=== PATIENT | female | born 1990 | race Caucasian/White ===

== ENCOUNTER → 2020-05-21 16:31 | Outpatient (CLI) | payer SELFPAY | PROVIDERS: PCP Family Medicine; Visit Provider Physician Assistant | DX: T14.8XXA Other injury of unspecified body region, initial encounter (principal) | CPT/HCPCS: 87070; 87075; 87205 ==

== ENCOUNTER → 2020-05-23 11:14 | Outpatient (CLI) | payer SELFPAY ==
[2020-05-23 11:53] LABS: Add Manual Diff / Slide Review NO; Basophils Absolute Auto 100 /uL (0-100); Basophils Percent Auto 0.5 % (0-2); Eosinophils Absolute Auto 1100 /uL (0-450); Eosinophils Percent Auto 9.6 % (2-4); Hematocrit 41.9 % (36-46); Hemoglobin 13.7 g/dL (12.0-16.0); Lymphocytes Absolute Auto 2500 /uL (1100-4500); Lymphocytes Percent Auto 21.4 % (25-40); Mean Corpuscular HGB Conc 32.7 % (30-36); Mean Corpuscular Hemoglobin 27.1 PG (26-34); Monocytes Absolute Auto 600 /uL (0-900); Monocytes Percent Auto 4.8 % (3-14); Neutrophils Absolute Auto 7500 /uL (1500-7000); Neutrophils Percent Auto 63.7 % (50-75); Platelet Count 369 X10^3/uL (150-400); Red Blood Cell Count 5.04 X10^6/uL (4.0-5.2); Red Cell Distribution Width 13.7 % (11.6-14.8); White Blood Cell Count 11.9 X10^3/uL (4.5-11.0)
[2020-05-23 12:21] LABS: Alanine Aminotransferase 20 IU/L (<35); Albumin 3.8 g/dL (3.5-5.0); Alkaline Phosphatase 112 U/L (38-126); Aspartate Aminotransferase 26 IU/L (14-36); BUN Creatinine Ratio 8.8 (6-22); Bilirubin Total 0.7 mg/dL (0.2-1.3); Blood Urea Nitrogen 7 mg/dL (7-17); Calcium 8.7 mg/dL (8.4-10.2); Carbon Dioxide 21 mmol/L (22-32); Chloride 105 mmol/L (98-107); Estimated Glomerular Filt Rate > 60.0 mL/min (>60); Globulin 3.7 g/dL (1.7-4.1); Glucose 134 mg/dL (70-100); HEMOLYSIS 35 (0-50); Potassium 3.9 mmol/L (3.4-5.1); Sodium 136 mmol/L (137-145); Total Protein 7.5 g/dL (6.3-8.2)
== END ==
PROVIDERS: PCP Family Medicine; Referring Provider Physician Assistant; Visit Provider Physician Assistant
DX: R21 Rash and other nonspecific skin eruption (principal)
CPT/HCPCS: 36415; 80053; 85025

== ENCOUNTER 2020-05-28 13:51 | Emergency (ER) | payer SELFPAY ==
[2020-05-28 14:29] VITALS: BP 107/74; PULSE 142; RESP 18; TEMP 36.9; O2SAT 95; BMI 52.9
--- NOTE | 2020-05-28 14:34 | PC.NURSE ---
Patient has multiple widespread lesion, pustules all over her body, in multiple stages of healing lasting for several days. She is not complaning of shortness of breath, chest pain, dizziness or lightheadedness. She is tachycardic at 140 but reports feeling anxious about being in the ER.
[2020-05-28 14:36] VITALS: O2SAT 95
[2020-05-28 14:42] LABS: Add Manual Diff / Slide Review NO; Basophils Absolute Auto 100 /uL (0-100); Basophils Percent Auto 0.4 % (0-2); Eosinophils Absolute Auto 1500 /uL (0-450); Eosinophils Percent Auto 12.6 % (2-4); Hematocrit 41.7 % (36-46); Hemoglobin 13.6 g/dL (12.0-16.0); Lymphocytes Absolute Auto 2400 /uL (1100-4500); Lymphocytes Percent Auto 20.2 % (25-40); Mean Corpuscular HGB Conc 32.5 % (30-36); Mean Corpuscular Volume 83.2 fL (80-100); Monocytes Absolute Auto 500 /uL (0-900); Monocytes Percent Auto 4.5 % (3-14); Neutrophils Absolute Auto 7500 /uL (1500-7000); Neutrophils Percent Auto 62.3 % (50-75); Platelet Count 358 X10^3/uL (150-400); Red Blood Cell Count 5.02 X10^6/uL (4.0-5.2); Red Cell Distribution Width 13.9 % (11.6-14.8); White Blood Cell Count 12.1 X10^3/uL (4.5-11.0)
--- NOTE | 2020-05-28 14:43 | ED_ITS ---
HPI - Skin/Abscess/Foreign Bdy <April Orellana MD - Last Filed: 06/01/20 18:04> General Chief complaint: Skin/Abscess/Foreign Body Stated complaint: SORES AND PUSTULES ALL OVER, FACIAL SWELLING Time Seen by Provider: 05/28/20 13:55 Source: patient Mode of arrival: Ambulatory Limitations: no limitations History of Present Illness HPI narrative: 29-year-old woman presents with significant bulla and vesicular lesions present for well over a month starting initially in her right axilla and progressing now to axilla face abdomen genitals mucous membranes years and getting significantly worse. She was seen at urgent care approximately a week ago and started on Augmentin for superinfection of the lesions, she declined ER evaluation or further workup at that time. She denies fevers, chills, night sweats. She had not been taking any medications prior to the initial lesions starting in the right axillary area. After taking Augmentin for the last 4 days she feels that the honey-colored discharge associated with some of the lease and is slightly lessened. She does note vesicles within the ear canal better draining, buccal mucosal as well as tongue involvement. Minor lesions extending over the external genitalia but does not seem to be involving vaginal or rectal mucosa. Of autoimmune disease. No regular medications, no IV drug use or high- risk behaviors. No recent viral illnesses of any sort. She denies headache, there is no vision changes, constipation, reactive arthropathy. She has had no cough, chest pain, abdominal pain, vomiting, diarrhea, dysuria. Despite the rather impressive dermatologic exam she appears nontoxic and is able to give a complete and coherent history. Reference pictures below At this time, possibility of bullous systemic lupus or paraneoplastic pemphigus are higher on my differential. Possibility of Arevalo-Heladio syndrome or toxic epidermal necrolysis is less likely as she appears so clinically stable otherwise. Of note there were no preceding medications in the 1st antibiotics were only 7 days ago. Do not suspect scalded skin syndrome, disseminated zoster or herpes. Blood work including blood cultures, sed rate, viral culture of 1 of the unroofed bulla, throat culture, are all obtained. The lesions are progressively getting worse and at this point are significant enough that hospitalization is likely going to be appropriate simply to care for the wounds themself. Diagnostic is significant and likely will be most appropriately handled at a larger facility with multiple specialties immediately available. To that end, pictures have been sent to [facility] to begin consultation with anticipation of transfer. Related Data Previous Rx's Medication Instructions Recorded drospirenone-e.estradiol-lm.FA 1 tab PO QDAY #3 packet 12/06/17 [Beyaz] hydroxyzine HCl 12.5 - 25 mg PO TID PRN #240 ml 05/28/20 triamcinolone acetonide 1 applic TOPICAL TID PRN #120 g 05/28/20 Allergies Allergy/AdvReac Type Severity Reaction Status Date / Time No Known Drug Allergies Allergy Verified 05/28/20 14:52 <ROBB Lopez - Last Filed: 05/28/20 20:01> Review of Systems Narrative: General: Denies (+) occasional subjective fever and chills, fatigue, malaise, sweats. HEENT: Denies sinus pain, (+) drainage from EACs and sloughing, (+) sores in the tongue and dry oral mucous membrane, sore throat, difficulty swallowing, dizziness. Respiratory: Denies dyspnea, cough, wheezing, hemoptysis, sputum. Cardiovascular: Denies chest pain, palpitations, orthopnea, edema. Gastrointestinal: Denies nausea, vomiting, abdominal pain, diarrhea, constipation, melena. : Denies dysuria, frequency, incontinence, hematuria, urinary retention. Musculoskeletal: Denies weakness, joint pain or bony pain. Skin: See HPI Neurologic: Denies weakness, headache, numbness, change in speech, confusion, seizures, incoordination. Psychiatric: No concerning psychosocial issues. 12-point review of systems is negative except for those stated above. Patient History <April Orellana MD - Last Filed: 06/01/20 18:04> Medical History No active medical problems Social History Smoking Status: Never smoker substance use type: marijuana (once) Smoking Status: Never smoker alcohol intake frequency: holidays/special occasions only Substance Use Type: marijuana Exam <April Orellana MD - Last Filed: 06/01/20 18:04> Initial Vital Signs Initial Vital Signs: Vital Signs Temperature 98.5 F 05/28/20 14:29 Pulse Rate 142 H 05/28/20 14:29 Respiratory Rate 18 05/28/20 14:29 Blood Pressure 107/74 05/28/20 14:29 Pulse Oximetry 95 05/28/20 14:29 <Chapin ROBB Sawyer - Last Filed: 05/28/20 20:01> Narrative Exam Narrative: GEN: Alert, oriented x 3, well nourished, and in moderate di stress from Dermatologic discomfort. Head: Normal cephalic, atraumatic. No scalp or temporal tenderness, palpable mass or rash. EYES: Pupils are equal, round, and reactive to light and accommodation. Extraocular muscles are intact bilaterally. There is no subconjunctival hemorrhage, exudate and sclera non-icteric. ENT: Bilateral auditory canal noted light yellowish drainage. Hearing grossly intact. Nose without bleeding, purulent discharge or deviation. Mild facial swelling in periorbital and nasal bridge nontender to palpate. Mucous membrane moist, ulcerate mucosal lesion. Throat without erythema, tonsillar hypertrophy or exudate. Uvula in midline, airway patent. Neck: Trachea in midline. No JVD, non-tender without lymphadenopathy. No masses or thyroid megaly. Supple, non-tender and no meningeal signs. CARDIAC: Normal regular rate and rhythm without murmurs, gallops, or rubs. No chest wall tenderness. No peripheral edema, cyanosis or pallor. Capillary refill is less than 2 seconds. RESPIRATORY: Lungs are clear to auscultate bilaterally. No cough, wheezes, ral es, or rhonchi. No stridor, respiratory distress, increase work of breathing, or accessary muscle used. ABD: Abdomen soft, nontender and non-distended. No guarding or rebound tenderness to palpate. Bowel sounds are normal in all 4 quadrants. There is no palpable masses or organomegaly. EXT: Full painless ROM of all extremities with no loss of sensation, strength, effusion or edema. SKIN: Warm, dry, normal color for patient. Multiple ulcerated lesions, bulla, pustules in face, upper body, upper and lower extremities. No rashes in palms or soles. Painful to palpate. BACK: Nontender without deformity or crepitance. No flank tenderness. NEUROLOGICAL: Alert and oriented to place, time and person. Sensation and motor function intact bilaterally. No facial droops, dysphasia. PSYCHIATRIC: Good judgement and reason, without hallucinations, abnormal affect or abnormal behaviors during the examination. Patient is not suicidal. Initial Vital Signs Initial Vital Signs: Vital Signs Temperature 98.5 F 05/28/20 14:29 Pulse Rate 142 H 05/28/20 14:29 Respiratory Rate 18 05/28/20 14:29 Blood Pressure 107/74 05/28/20 14:29 Pulse Oximetry 95 05/28/20 14:29 <ROBB Lopez - Last Filed: 05/28/20 20:01> GCS [place] coma scale eye opening: Spontaneous [place] coma scale verbal response: Orientated [place] coma scale motor response: Obey commands [place] coma scale total score: 15 Course <April Orellana MD - Last Filed: 06/01/20 18:04> Orders Ordered: Discontinued Medications Diphenhydramine HCl (Diphenhydramine 50 Mg/Ml Vial) 25 mg IV NOW ONE Stop: 05/28/20 15:27 Last Admin: 05/28/20 15:36 Dose: 25 mg Documented by: VIVEK Sodium Chloride (Normal Saline 0.9%) 1,000 mls @ 1,000 mls/hr IV BOLUS ONE Stop: 05/28/20 15:10 Last Infusion: 05/28/20 16:48 Dose: 0 mls/hr Documented by: Admin: 05/28/20 14:57 Dose: 1,000 mls/hr Documented by: JHONATAN Sodium Chloride (Normal Saline 0.9%) 1,000 mls @ 150 mls/hr IV CONT MADHU Last Infusion: 05/28/20 19:20 Dose: 0 mls/hr Documented by: Infusion: 05/28/20 18:08 Dose: 1,000 mls/hr Documented by: Admin: 05/28/20 17:30 Dose: 150 mls/hr Documented by: JHONATAN Silver Sulfadiazine (Silver Sulfadiazine 1% Cream 25 Gm) 1 applic TOP NOW ONE Stop: 05/28/20 14:33 Last Admin: 05/28/20 15:34 Dose: Not Given Documented by: JHONATAN Silver Sulfadiazine (Silver Sulfadiazine 1% Cream 50 Gm) 1 applic TOP NOW ONE Stop: 05/28/20 15:16 Last Admin: 05/28/20 15:35 Dose: 1 applic Documented by: JHONATAN Consultations Consultation #1: Consultation #2: Consultation #3: Vital Signs Vital signs: Vital Signs - 8 hr 05/28/20 14:29 05/28/20 14:36 05/28/20 17:14 Temperature 98.5 F 98.7 F Pulse Rate 142 H 89 Respiratory Rate 18 16 Blood Pressure 107/74 90/54 L Pulse Oximetry 95 95 95 05/28/20 19:04 Temperature 98.8 F Pulse Rate 96 H Respiratory Rate 14 Blood Pressure 106/63 Pulse Oximetry 96 <ROBB Lopez - Last Filed: 05/28/20 20:01> Orders Ordered: Discontinued Medications Diphenhydramine HCl (Diphenhydramine 50 Mg/Ml Vial) 25 mg IV NOW ONE Stop: 05/28/20 15:27 Last Admin: 05/28/20 15:36 Dose: 25 mg Documented by: VIVEK Sodium Chloride (Normal Saline 0.9%) 1,000 mls @ 1,000 mls/hr IV BOLUS ONE Stop: 05/28/20 15:10 Last Infusion: 05/28/20 16:48 Dose: 0 mls/hr Documented by: Admin: 05/28/20 14:57 Dose: 1,000 mls/hr Documented by: JHONATAN Sodium Chloride (Normal Saline 0.9%) 1,000 mls @ 150 mls/hr IV CONT MADHU Last Infusion: 05/28/20 19:20 Dose: 0 mls/hr Documented by: Infusion: 05/28/20 18:08 Dose: 1,000 mls/hr Documented by: Admin: 05/28/20 17:30 Dose: 150 mls/hr Documented by: JHONATAN Silver Sulfadiazine (Silver Sulfadiazine 1% Cream 25 Gm) 1 applic TOP NOW ONE Stop: 05/28/20 14:33 Last Admin: 05/28/20 15:34 Dose: Not Given Documented by: JHONATAN Silver Sulfadiazine (Silver Sulfadiazine 1% Cream 50 Gm) 1 applic TOP NOW ONE Stop: 05/28/20 15:16 Last Admin: 05/28/20 15:35 Dose: 1 applic Documented by: JHONATAN Reevaluation(s) Reevaluation #1: Patient reports itching improved after the Benadryl. Mild discomfort when she has to reposition self. Update given and informed that wait ing for Measurement Superintendent phone call from [facility]. Time: 17:28 Consultations Consultation #1: [facility] contacted for infectious disease, dermatology consultation and possible transfer patient for further evaluation and treatment. Photos transmitted. Time: 13:25 Consultation #2: [facility] contacted to f/u on consultation and was informed about long wait at this time and will return a phone call by an RN for further information request. Time: 14:30 Consultation #3: [facility] transfer vp & general counsel called back and provided patient's information and waiting for tool design engineer phone call. Declines pain med. Time: 17:05 Additional Consultation(s): Spoke with Radha Ramsey at [facility], dermatolgoist. She reviewed the photos of the patient that have been transmitted. recommends no urgent transfer of patient to [facility] since patient does not have major constitutional symptoms and this has been going on for a month or 2 and she does have an appointment set up in 2 days locally. 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 She recommended Atarax as needed for itching, topical steroids as related and apply skin lesions with Vaseline gauze. She recommended continue to use Silvadene if this has already started in addition. Dr. Chandler also recommended stopping Augment. Vital Signs Vital signs: Vital Signs - 8 hr 05/28/20 14:29 05/28/20 14:36 05/28/20 17:14 Temperature 98.5 F 98.7 F Pulse Rate 142 H 89 Respiratory Rate 18 16 Blood Pressure 107/74 90/54 L Pulse Oximetry 95 95 95 05/28/20 19:04 Temperature 98.8 F Pulse Rate 96 H Respiratory Rate 14 Blood Pressure 106/63 Pulse Oximetry 96 MDM - Skin/Abscess/Foreign Bdy <April Orellana MD - Last Filed: 06/01/20 18:04> Lab Data Result diagrams: 05/28/20 14:20 05/28/20 14:20 Labs: Lab Results 05/28/20 05/28/20 05/28/20 Range/Units 14:20 14:20 14:20 WBC 12.1 H (4.5-11.0) X10^3/uL RBC 5.02 (4.0-5.2) X10^6/uL Hgb 13.6 (12.0-16.0) g/dL Hct 41.7 (36-46) % MCV 83.2 (80-100) fL MCH 27.0 (26-34) PG MCHC 32.5 (30-36) % RDW 13.9 (11.6-14.8) % Plt Count 358 (150-400) X10^3/uL Neut % (Auto) 62.3 (50-75) % Lymph % (Auto) 20.2 L (25-40) % [place] % (Auto) 4.5 (3-14) % Eos % (Auto) 12.6 H (2-4) % Baso % (Auto) 0.4 (0-2) % Neut # (Auto) 7500 H (6464-0794) /uL Lymph # (Auto) 2400 (7937-0112) /uL [place] # (Auto) 500 (0-900) /uL Eos # (Auto) 1500 H (0-450) /uL Baso # (Auto) 100 (0-100) /uL ESR (0-20) MM/HR Sodium 136 L (137-145) mmol/L Potassium 3.8 (3.4-5.1) mmol/L Chloride 106 (98-107) mmol/L Carbon Dioxide 22 (22-32) mmol/L BUN 7 (7-17) mg/dL Creatinine 0.81 (0.52-1.04) mg/dL Estimated GFR > 60.0 (>60) mL/min BUN/Creatinine Ratio 8.6 (6-22) Glucose 131 H (70-100) mg/dL Lactate (0.7-2.1) mmol/L Calcium 8.7 (8.4-10.2) mg/dL Total Bilirubin 0.7 (0.2-1.3) mg/dL AST 35 (14-36) IU/L ALT 28 (<35) IU/L Alkaline Phosphatase 106 (38-126) U/L C-Reactive Protein (<1.0) mg/dL Total Protein 6.9 (6.3-8.2) g/dL Albumin 3.5 (3.5-5.0) g/dL Globulin 3.4 (1.7-4.1) g/dL Albumin/Globulin Ratio 1.0 (1.0-2.8) Procalcitonin < 0.05 (<0.5) ng/mL Urine Color Urine Appearance Urine pH (4.5-8.0) Ur Specific [place] (1.000-1.035) Urine Protein (Negative) Urine Glucose (UA) (Negative) g/dL Urine Ketones (NEGATIVE) Urine Occult Blood (Negative) Urine Nitrate (Negative) Urine Bilirubin (NEGATIVE) Urine Urobilinogen (0.2) E.U./dL Ur Leukocyte Esterase (NEGATIVE) Urine RBC (0-5/HPF) Urine WBC (0-5/HPF) Ur Squamous Epith Cells (0-5/HPF) Ur Transition Epith Cell (0-5/HPF) Urine Bacteria (None) Urine Mucus (Negative) Ur Culture Indicated? Urine Test (Negative) COVID-19 PCR (Negative) Group A Strep (PCR) 05/28/20 05/28/20 05/28/20 Range/Units 14:20 14:20 14:20 WBC (4.5-11.0) X10^3/uL RBC (4.0-5.2) X10^6/uL Hgb (12.0-16.0) g/dL Hct (36-46) % MCV (80-100) fL MCH (26-34) PG MCHC (30-36) % RDW (11.6-14.8) % Plt Count (150-400) X10^3/uL Neut % (Auto) (50-75) % Lymph % (Auto) (25-40) % [place] % (Auto) (3-14) % Eos % (Auto) (2-4) % Baso % (Auto) (0-2) % Neut # (Auto) (5348-3228) /uL Lymph # (Auto) (3944-4347) /uL [place] # (Auto) (0-900) /uL Eos # (Auto) (0-450) /uL Baso # (Auto) (0-100) /uL ESR 6 (0-20) MM/HR Sodium (137-145) mmol/L Potassium (3.4-5.1) mmol/L Chloride (98-107) mmol/L Carbon Dioxide (22-32) mmol/L BUN (7-17) mg/dL Creatinine (0.52-1.04) mg/dL Estimated GFR (>60) mL/min BUN/Creatinine Ratio (6-22) Glucose (70-100) mg/dL Lactate 1.3 (0.7-2.1) mmol/L Calcium (8.4-10.2) mg/dL Total Bilirubin (0.2-1.3) mg/dL AST (14-36) IU/L ALT (<35) IU/L Alkaline Phosphatase (38-126) U/L C-Reactive Protein 1.3 H (<1.0) mg/dL Total Protein (6.3-8.2) g/dL Albumin (3.5-5.0) g/dL Globulin (1.7-4.1) g/dL Albumin/Globulin Ratio (1.0-2.8) Procalcitonin (<0.5) ng/mL Urine Color Urine Appearance Urine pH (4.5-8.0) Ur Specific [place] (1.000-1.035) Urine Protein (Negative) Urine Glucose (UA) (Negative) g/dL Urine Ketones (NEGATIVE) Urine Occult Blood (Negative) Urine Nitrate (Negative) Urine Bilirubin (NEGATIVE) Urine Urobilinogen (0.2) E.U./dL Ur Leukocyte Esterase (NEGATIVE) Urine RBC (0-5/HPF) Urine WBC (0-5/HPF) Ur Squamous Epith Cells (0-5/HPF) Ur Transition Epith Cell (0-5/HPF) Urine Bacteria (None) Urine Mucus (Negative) Ur Culture Indicated? Urine Test (Negative) COVID-19 PCR (Negative) Group A Strep (PCR) 05/28/20 05/28/20 05/28/20 Range/Units 14:20 14:20 16:18 WBC (4.5-11.0) X10^3/uL RBC (4.0-5.2) X10^6/uL Hgb (12.0-16.0) g/dL Hct (36-46) % MCV (80-100) fL MCH (26-34) PG MCHC (30-36) % RDW (11.6-14.8) % Plt Count (150-400) X10^3/uL Neut % (Auto) (50-75) % Lymph % (Auto) (25-40) % [place] % (Auto) (3-14) % Eos % (Auto) (2-4) % Baso % (Auto) (0-2) % Neut # (Auto) (1707-9236) /uL Lymph # (Auto) (9036-8913) /uL [place] # (Auto) (0-900) /uL Eos # (Auto) (0-450) /uL Baso # (Auto) (0-100) /uL ESR (0-20) MM/HR Sodium (137-145) mmol/L Potassium (3.4-5.1) mmol/L Chloride (98-107) mmol/L Carbon Dioxide (22-32) mmol/L BUN (7-17) mg/dL Creatinine (0.52-1.04) mg/dL Estimated GFR (>60) mL/min BUN/Creatinine Ratio (6-22) Glucose (70-100) mg/dL Lactate (0.7-2.1) mmol/L Calcium (8.4-10.2) mg/dL Total Bilirubin (0.2-1.3) mg/dL AST (14-36) IU/L ALT (<35) IU/L Alkaline Phosphatase (38-126) U/L C-Reactive Protein (<1.0) mg/dL Total Protein (6.3-8.2) g/dL Albumin (3.5-5.0) g/dL Globulin (1.7-4.1) g/dL Albumin/Globulin Ratio (1.0-2.8) Procalcitonin (<0.5) ng/mL Urine Color Urine Appearance Urine pH (4.5-8.0) Ur Specific [place] (1.000-1.035) Urine Protein (Negative) Urine Glucose (UA) (Negative) g/dL Urine Ketones (NEGATIVE) Urine Occult Blood (Negative) Urine Nitrate (Negative) Urine Bilirubin (NEGATIVE) Urine Urobilinogen (0.2) E.U./dL Ur Leukocyte Esterase (NEGATIVE) Urine RBC (0-5/HPF) Urine WBC (0-5/HPF) Ur Squamous Epith Cells (0-5/HPF) Ur Transition Epith Cell (0-5/HPF) Urine Bacteria (None) Urine Mucus (Negative) Ur Culture Indicated? Urine Test Negative (Negative) COVID-19 PCR Negative (Negative) Group A Strep (PCR) Negative 05/28/20 Range/Units 16:18 WBC (4.5-11.0) X10^3/uL RBC (4.0-5.2) X10^6/uL Hgb (12.0-16.0) g/dL Hct (36-46) % MCV (80-100) fL MCH (26-34) PG MCHC (30-36) % RDW (11.6-14.8) % Plt Count (150-400) X10^3/uL Neut % (Auto) (50-75) % Lymph % (Auto) (25-40) % [place] % (Auto) (3-14) % Eos % (Auto) (2-4) % Baso % (Auto) (0-2) % Neut # (Auto) (4052-7334) /uL Lymph # (Auto) (4091-1422) /uL [place] # (Auto) (0-900) /uL Eos # (Auto) (0-450) /uL Baso # (Auto) (0-100) /uL ESR (0-20) MM/HR Sodium (137-145) mmol/L Potassium (3.4-5.1) mmol/L Chloride (98-107) mmol/L Carbon Dioxide (22-32) mmol/L BUN (7-17) mg/dL Creatinine (0.52-1.04) mg/dL Estimated GFR (>60) mL/min BUN/Creatinine Ratio (6-22) Glucose (70-100) mg/dL Lactate (0.7-2.1) mmol/L Calcium (8.4-10.2) mg/dL Total Bilirubin (0.2-1.3) mg/dL AST (14-36) IU/L ALT (<35) IU/L Alkaline Phosphatase (38-126) U/L C-Reactive Protein (<1.0) mg/dL Total Protein (6.3-8.2) g/dL Albumin (3.5-5.0) g/dL Globulin (1.7-4.1) g/dL Albumin/Globulin Ratio (1.0-2.8) Procalcitonin (<0.5) ng/mL Urine Color Yellow Urine Appearance Sl cloudy Urine pH 6.0 (4.5-8.0) Ur Specific [place] 1.010 (1.000-1.035) Urine Protein Negative (Negative) Urine Glucose (UA) Negative (Negative) g/dL Urine Ketones Trace H (NEGATIVE) Urine Occult Blood Trace-lysed (Negative) Urine Nitrate Negative (Negative) Urine Bilirubin Negative (NEGATIVE) Urine Urobilinogen 0.2 (0.2) E.U./dL Ur Leukocyte Esterase Negative (NEGATIVE) Urine RBC 0-1/hpf (0-5/HPF) Urine WBC 1-5/hpf (0-5/HPF) Ur Squamous Epith Cells 10-30 /hpf H (0-5/HPF) Ur Transition Epith Cell 10-30/hpf H (0-5/HPF) Urine Bacteria Occasional (0-1) (None) Urine Mucus 1+ H (Negative) Ur Culture Indicated? Cult not indicated Urine Test (Negative) COVID-19 PCR (Negative) Group A Strep (PCR) <ROBB Lopez - Last Filed: 05/28/20 20:01> Differential Diagnosis Differential diagnosis: Likely other (SJS, TEN, paraneoplasitc pemphigus, bullous systemic lupus, scalded skin syndrome, disseminated zoster/herpes, bullae pemphigoid) Medical Records Attestation: I reviewed the patient's medical records. Lab Data Attestation: I reviewed the patient's lab results. Labs: Lab Results 05/28/20 05/28/20 05/28/20 Range/Units 14:20 14:20 14:20 WBC 12.1 H (4.5-11.0) X10^3/uL RBC 5.02 (4.0-5.2) X10^6/uL Hgb 13.6 (12.0-16.0) g/dL Hct 41.7 (36-46) % MCV 83.2 (80-100) fL MCH 27.0 (26-34) PG MCHC 32.5 (30-36) % RDW 13.9 (11.6-14.8) % Plt Count 358 (150-400) X10^3/uL Neut % (Auto) 62.3 (50-75) % Lymph % (Auto) 20.2 L (25-40) % [place] % (Auto) 4.5 (3-14) % Eos % (Auto) 12.6 H (2-4) % Baso % (Auto) 0.4 (0-2) % Neut # (Auto) 7500 H (2592-8515) /uL Lymph # (Auto) 2400 (4816-0626) /uL [place] # (Auto) 500 (0-900) /uL Eos # (Auto) 1500 H (0-450) /uL Baso # (Auto) 100 (0-100) /uL ESR (0-20) MM/HR Sodium 136 L (137-145) mmol/L Potassium 3.8 (3.4-5.1) mmol/L Chloride 106 (98-107) mmol/L Carbon Dioxide 22 (22-32) mmol/L BUN 7 (7-17) mg/dL Creatinine 0.81 (0.52-1.04) mg/dL Estimated GFR > 60.0 (>60) mL/min BUN/Creatinine Ratio 8.6 (6-22) Glucose 131 H (70-100) mg/dL Lactate (0.7-2.1) mmol/L Calcium 8.7 (8.4-10.2) mg/dL Total Bilirubin 0.7 (0.2-1.3) mg/dL AST 35 (14-36) IU/L ALT 28 (<35) IU/L Alkaline Phosphatase 106 (38-126) U/L C-Reactive Protein (<1.0) mg/dL Total Protein 6.9 (6.3-8.2) g/dL Albumin 3.5 (3.5-5.0) g/dL Globulin 3.4 (1.7-4.1) g/dL Albumin/Globulin Ratio 1.0 (1.0-2.8) Procalcitonin < 0.05 (<0.5) ng/mL Urine Color Urine Appearance Urine pH (4.5-8.0) Ur Specific [place] (1.000-1.035) Urine Protein (Negative) Urine Glucose (UA) (Negative) g/dL Urine Ketones (NEGATIVE) Urine Occult Blood (Negative) Urine Nitrate (Negative) Urine Bilirubin (NEGATIVE) Urine Urobilinogen (0.2) E.U./dL Ur Leukocyte Esterase (NEGATIVE) Urine RBC (0-5/HPF) Urine WBC (0-5/HPF) Ur Squamous Epith Cells (0-5/HPF) Ur Transition Epith Cell (0-5/HPF) Urine Bacteria (None) Urine Mucus (Negative) Ur Culture Indicated? Urine Test (Negative) COVID-19 PCR (Negative) Group A Strep (PCR) 05/28/20 05/28/20 05/28/20 Range/Units 14:20 14:20 14:20 WBC (4.5-11.0) X10^3/uL RBC (4.0-5.2) X10^6/uL Hgb (12.0-16.0) g/dL Hct (36-46) % MCV (80-100) fL MCH (26-34) PG MCHC (30-36) % RDW (11.6-14.8) % Plt Count (150-400) X10^3/uL Neut % (Auto) (50-75) % Lymph % (Auto) (25-40) % [place] % (Auto) (3-14) % Eos % (Auto) (2-4) % Baso % (Auto) (0-2) % Neut # (Auto) (8966-2580) /uL Lymph # (Auto) (2914-9206) /uL [place] # (Auto) (0-900) /uL Eos # (Auto) (0-450) /uL Baso # (Auto) (0-100) /uL ESR 6 (0-20) MM/HR Sodium (137-145) mmol/L Potassium (3.4-5.1) mmol/L Chloride (98-107) mmol/L Carbon Dioxide (22-32) mmol/L BUN (7-17) mg/dL Creatinine (0.52-1.04) mg/dL Estimated GFR (>60) mL/min BUN/Creatinine Ratio (6-22) Glucose (70-100) mg/dL Lactate 1.3 (0.7-2.1) mmol/L Calcium (8.4-10.2) mg/dL Total Bilirubin (0.2-1.3) mg/dL AST (14-36) IU/L ALT (<35) IU/L Alkaline Phosphatase (38-126) U/L C-Reactive Protein 1.3 H (<1.0) mg/dL Total Protein (6.3-8.2) g/dL Albumin (3.5-5.0) g/dL Globulin (1.7-4.1) g/dL Albumin/Globulin Ratio (1.0-2.8) Procalcitonin (<0.5) ng/mL Urine Color Urine Appearance Urine pH (4.5-8.0) Ur Specific [place] (1.000-1.035) Urine Protein (Negative) Urine Glucose (UA) (Negative) g/dL Urine Ketones (NEGATIVE) Urine Occult Blood (Negative) Urine Nitrate (Negative) Urine Bilirubin (NEGATIVE) Urine Urobilinogen (0.2) E.U./dL Ur Leukocyte Esterase (NEGATIVE) Urine RBC (0-5/HPF) Urine WBC (0-5/HPF) Ur Squamous Epith Cells (0-5/HPF) Ur Transition Epith Cell (0-5/HPF) Urine Bacteria (None) Urine Mucus (Negative) Ur Culture Indicated? Urine Test (Negative) COVID-19 PCR (Negative) Group A Strep (PCR) 05/28/20 05/28/20 05/28/20 Range/Units 14:20 14:20 16:18 WBC (4.5-11.0) X10^3/uL RBC (4.0-5.2) X10^6/uL Hgb (12.0-16.0) g/dL Hct (36-46) % MCV (80-100) fL MCH (26-34) PG MCHC (30-36) % RDW (11.6-14.8) % Plt Count (150-400) X10^3/uL Neut % (Auto) (50-75) % Lymph % (Auto) (25-40) % [place] % (Auto) (3-14) % Eos % (Auto) (2-4) % Baso % (Auto) (0-2) % Neut # (Auto) (4640-5238) /uL Lymph # (Auto) (4065-8265) /uL [place] # (Auto) (0-900) /uL Eos # (Auto) (0-450) /uL Baso # (Auto) (0-100) /uL ESR (0-20) MM/HR Sodium (137-145) mmol/L Potassium (3.4-5.1) mmol/L Chloride (98-107) mmol/L Carbon Dioxide (22-32) mmol/L BUN (7-17) mg/dL Creatinine (0.52-1.04) mg/dL Estimated GFR (>60) mL/min BUN/Creatinine Ratio (6-22) Glucose (70-100) mg/dL Lactate (0.7-2.1) mmol/L Calcium (8.4-10.2) mg/dL Total Bilirubin (0.2-1.3) mg/dL AST (14-36) IU/L ALT (<35) IU/L Alkaline Phosphatase (38-126) U/L C-Reactive Protein (<1.0) mg/dL Total Protein (6.3-8.2) g/dL Albumin (3.5-5.0) g/dL Globulin (1.7-4.1) g/dL Albumin/Globulin Ratio (1.0-2.8) Procalcitonin (<0.5) ng/mL Urine Color Urine Appearance Urine pH (4.5-8.0) Ur Specific [place] (1.000-1.035) Urine Protein (Negative) Urine Glucose (UA) (Negative) g/dL Urine Ketones (NEGATIVE) Urine Occult Blood (Negative) Urine Nitrate (Negative) Urine Bilirubin (NEGATIVE) Urine Urobilinogen (0.2) E.U./dL Ur Leukocyte Esterase (NEGATIVE) Urine RBC (0-5/HPF) Urine WBC (0-5/HPF) Ur Squamous Epith Cells (0-5/HPF) Ur Transition Epith Cell (0-5/HPF) Urine Bacteria (None) Urine Mucus (Negative) Ur Culture Indicated? Urine Test Negative (Negative) COVID-19 PCR Negative (Negative) Group A Strep (PCR) Negative 05/28/20 Range/Units 16:18 WBC (4.5-11.0) X10^3/uL RBC (4.0-5.2) X10^6/uL Hgb (12.0-16.0) g/dL Hct (36-46) % MCV (80-100) fL MCH (26-34) PG MCHC (30-36) % RDW (11.6-14.8) % Plt Count (150-400) X10^3/uL Neut % (Auto) (50-75) % Lymph % (Auto) (25-40) % [place] % (Auto) (3-14) % Eos % (Auto) (2-4) % Baso % (Auto) (0-2) % Neut # (Auto) (6200-9023) /uL Lymph # (Auto) (2530-2224) /uL [place] # (Auto) (0-900) /uL Eos # (Auto) (0-450) /uL Baso # (Auto) (0-100) /uL ESR (0-20) MM/HR Sodium (137-145) mmol/L Potassium (3.4-5.1) mmol/L Chloride (98-107) mmol/L Carbon Dioxide (22-32) mmol/L BUN (7-17) mg/dL Creatinine (0.52-1.04) mg/dL Estimated GFR (>60) mL/min BUN/Creatinine Ratio (6-22) Glucose (70-100) mg/dL Lactate (0.7-2.1) mmol/L Calcium (8.4-10.2) mg/dL Total Bilirubin (0.2-1.3) mg/dL AST (14-36) IU/L ALT (<35) IU/L Alkaline Phosphatase (38-126) U/L C-Reactive Protein (<1.0) mg/dL Total Protein (6.3-8.2) g/dL Albumin (3.5-5.0) g/dL Globulin (1.7-4.1) g/dL Albumin/Globulin Ratio (1.0-2.8) Procalcitonin (<0.5) ng/mL Urine Color Yellow Urine Appearance Sl cloudy Urine pH 6.0 (4.5-8.0) Ur Specific [place] 1.010 (1.000-1.035) Urine Protein Negative (Negative) Urine Glucose (UA) Negative (Negative) g/dL Urine Ketones Trace H (NEGATIVE) Urine Occult Blood Trace-lysed (Negative) Urine Nitrate Negative (Negative) Urine Bilirubin Negative (NEGATIVE) Urine Urobilinogen 0.2 (0.2) E.U./dL Ur Leukocyte Esterase Negative (NEGATIVE) Urine RBC 0-1/hpf (0-5/HPF) Urine WBC 1-5/hpf (0-5/HPF) Ur Squamous Epith Cells 10-30 /hpf H (0-5/HPF) Ur Transition Epith Cell 10-30/hpf H (0-5/HPF) Urine Bacteria Occasional (0-1) (None) Urine Mucus 1+ H (Negative) Ur Culture Indicated? Cult not indicated Urine Test (Negative) COVID-19 PCR (Negative) Group A Strep (PCR) MDM Narrative Medical decision making narrative: This is a 29 year female with no contrubutory medical history presents to ED with mother with chief complain of blistering skin lesions in generalized body including oral mucous membrane, pustules around the face, drainage from bilateral AC, and for last 1-2 months. Patient denies fever but occasional chills and feeling slightly warm. Patient was evaluated at walk-in clinic 1 week ago and offered an ER evaluation which patient declined she was discharged to home with Augmentin for 10 day course. Patient denies known autoimmune disease, joint pain, taking other medications prior to the skin lesions erupted. Initially she was tachycardic in 140 and she contributed to feeling anxious. Shortly after patient rest in bed, heart rate decreased to in 90s. Patient is afebrile. Mild leukocytosis of 12.1 of white count. No increase in lactate or procalcitonin. Mildly elevated CRP of 1.3. Unremarkable chemistry tests. Wound culture from 1 week ago from walk-in clinic without any growth. Blood culture is, viral culture, additional wound cultures pending. Dr. Orellana assessed the patient at bedside and took photos for medical records and transmitted these to [facility] consult, possible transfer. After waiting several hours, spoke with Dr. Chandler (tool design engineer) and consulted her for possible transfer or course of treatment options. According to Dr. chandler, not recommending immediate transfer to [place] at this time and states patient probably will not be excepted to burn center at this time given patient had symptoms for 1-2 months, no signs of overwhelming infection at this time. Patient has follow-up appointment with local tool design engineer with [facility] Garzon in 2 days and she recommended close follow-up with tool design engineer as scheduled. She anticipate skin biopsy at that time and possible treatment with steroids after the biopsy. She recommended stop taking Augmentin at this time. Advised to use oral and topical steroids. She was okay continue using Silvadene ointment and dressings with Vaseline gauze. No further blood test was recommended at this time. Patient received 1.5 L of IV fluid infusion and received 25 mg of Benadryl for itching. Patient declined pain medications. Vital signs within normal limits. Patient was afebrile. Return precautions, plan of treatment and close follow-up with tool design engineer with patient and mother and they both verbalized under standing and in agreement with the treatment plan. Discharge Plan Departure Patient Disposition: Home Clinical Impression: BP (bullous pemphigoid) Instructions: Bullous Pemphigoid Activity Restrictions/Additional Instructions: You have been diagnosed with [likely bullous pemphigoid. [facility] tool design engineer was consulted and spoke with Dr. Muro on the phone. She recommended to follow-up with tool design engineer appointment on Saturday as scheduled. You can use Silvadene cream. Topical steroids Triamcinolone acetonide ointment as needed for itching. You can continue with wound care at home with a ointments. You can also take Atarax/hydroxyzine elix as needed for itching specially at night. Please stop taking Augmentin. ]. What to do: *Take your medications as directed. Hydroxyzine and steroid ointment have been transmitted to [facility]. *Follow up with your primary care provider in 2-3 days, call for an appointment. Let them know you were seen in the ED and that we asked you to be seen in follow up. During dermatology appointment, it may receive biopsy test. Dr. Muro thinks you may require prednisone treatment but recommended after the evaluation by tool design engineer at this time. *Return to ED if you have any new, worsening, or concerning symptoms, such as [chest pain, breathing difficulty, unable to tolerate fluids, fever, worsening pain, or any acute concerns]. Prescriptions: New triamcinolone acetonide 0.025 % ointment 1 applic topical TID PRN (Reason: itching) Qty: 120 RF: 0 hydroxyzine HCl 10 mg/5 mL solution 12.5 - 25 mg PO TID PRN (Reason: itching) Qty: 240 RF: 0 No Action drospirenone-e.estradiol-lm.FA [Beyaz] 3-0.02-0.451 mg (24) (4) tablet 1 tab PO QDAY Qty: 3 RF: 2 Referrals: Glenn Zelaya MD [Non-Staff] - Coleen Palacios DO [Primary Care Provider] -
[2020-05-28 14:51] LABS: Lactate (Lactic Acid) 1.3 mmol/L (0.7-2.1)
[2020-05-28 14:52] LABS: Alanine Aminotransferase 28 IU/L (<35); Albumin 3.5 g/dL (3.5-5.0); Alkaline Phosphatase 106 U/L (38-126); Aspartate Aminotransferase 35 IU/L (14-36); BUN Creatinine Ratio 8.6 (6-22); Bilirubin Total 0.7 mg/dL (0.2-1.3); Blood Urea Nitrogen 7 mg/dL (7-17); Calcium 8.7 mg/dL (8.4-10.2); Carbon Dioxide 22 mmol/L (22-32); Chloride 106 mmol/L (98-107); Estimated Glomerular Filt Rate > 60.0 mL/min (>60); Globulin 3.4 g/dL (1.7-4.1); Glucose 131 mg/dL (70-100); HEMOLYSIS 29 (0-50); Potassium 3.8 mmol/L (3.4-5.1); Sodium 136 mmol/L (137-145); Total Protein 6.9 g/dL (6.3-8.2)
[2020-05-28] MEDS: SODIUM CHLORIDE 0.9% 1,000 ML 1000 ML IV (14:57)
[2020-05-28 15:04] LABS: C-Reactive Protein Quant 1.3 mg/dL (<1.0)
[2020-05-28 15:12] LABS: Erythrocyte Sedimentation Rate 6 MM/HR (0-20)
[2020-05-28 15:33] LABS: Procalcitonin < 0.05 ng/mL (<0.5)
[2020-05-28] MEDS: SILVER SULFADIAZINE 1% CREAM 50 GM 1 APPLIC TOP (15:35)
[2020-05-28] MEDS: diphenhydrAMINE 50 MG/ML VIAL 25 MG IV (15:36)
[2020-05-28 15:53] LABS: COVID19 -Nasal RAPID Negative (Negative)
[2020-05-28 16:23] LABS: Appearance Urine UA SL CLOUDY; Bilirubin Urine UA NEGATIVE (NEGATIVE); Color Urine UA YELLOW; Glucose Urine UA NEGATIVE (Negative); Ketones Urine UA TRACE (NEGATIVE); Leukocyte Esterase Urine UA NEGATIVE (NEGATIVE); Nitrite Urine UA NEGATIVE (Negative); Occult Blood Urine UA TRACE-LYSED (Negative); Protein Urine UA NEGATIVE (Negative); Urobilinogen Urine UA 0.2 E.U./dL (0.2)
[2020-05-28 16:24] LABS: Pregnancy Test Urine Negative (Negative)
[2020-05-28 16:29] LABS: Bacteria Urine Occasional (0-1); Culture Indicated Urine Cult Not Indicated; Mucus Urine 1+ (Negative); RBC Urine 0-1/HPF (0-5/HPF); Squamous Epithelial Cell Urine 10-30 /HPF (0-5/HPF); Transitional Epi Cells Urine 10-30/HPF (0-5/HPF); WBC Urine 1-5/HPF (0-5/HPF)
[2020-05-28 17:14] VITALS: BP 90/54; PULSE 89; RESP 16; TEMP 37.1; O2SAT 95
[2020-05-28] MEDS: SODIUM CHLORIDE 0.9% 1,000 ML 150 ML IV (17:30)
[2020-05-28 18:12] LABS: Strep Grp A by PCR Rapid Negative
[2020-05-28 19:04] VITALS: BP 106/63; PULSE 96; RESP 14; TEMP 37.1; O2SAT 96
== END 2020-05-28 19:07 | disposition home or self-care (01) ==
PROVIDERS: Emergency Medicine; Emergency Provider Nurse Practitioner Family; PCP Family Medicine
DX: L12.0 Bullous pemphigoid (principal); R00.0 Tachycardia, unspecified; R79.89 Other specified abnormal findings of blood chemistry
CPT/HCPCS: 36415; 80053; 81001; 81025; 83605; 84145; 85025; 85651; 86140; 87040; 87070; 87075; 87077; 87147; 87186; 87205; 87252; 87635; 87651; 96361; 96374; 99281; 99284; J1200

== ENCOUNTER → 2020-07-14 12:12 | Outpatient (CLI) | payer OTHER, SELFPAY ==
[2020-07-14 12:54] LABS: Add Manual Diff / Slide Review NO; Basophils Absolute Auto 100 /uL (0-100); Basophils Percent Auto 0.6 % (0-2); Eosinophils Absolute Auto 0 /uL (0-450); Eosinophils Percent Auto 0.2 % (2-4); Hematocrit 40.3 % (36-46); Hemoglobin 13.2 g/dL (12.0-16.0); Lymphocytes Absolute Auto 4100 /uL (1100-4500); Lymphocytes Percent Auto 26.4 % (25-40); Mean Corpuscular HGB Conc 32.7 % (30-36); Mean Corpuscular Volume 85.7 fL (80-100); Monocytes Absolute Auto 500 /uL (0-900); Monocytes Percent Auto 3.2 % (3-14); Neutrophils Absolute Auto 10800 /uL (1500-7000); Neutrophils Percent Auto 69.6 % (50-75); Platelet Count 329 X10^3/uL (150-400); Red Cell Distribution Width 14.9 % (11.6-14.8); White Blood Cell Count 15.5 X10^3/uL (4.5-11.0)
[2020-07-14 13:27] LABS: Alanine Aminotransferase 17 IU/L (<35); Albumin 4.1 g/dL (3.5-5.0); Albumin Globulin Ratio 1.4 (1.0-2.8); Alkaline Phosphatase 64 U/L (38-126); Aspartate Aminotransferase 21 IU/L (14-36); BUN Creatinine Ratio 28.2 (6-22); Bilirubin Total 0.5 mg/dL (0.2-1.3); Blood Urea Nitrogen 20 mg/dL (7-17); Calcium 9.9 mg/dL (8.4-10.2); Carbon Dioxide 26 mmol/L (22-32); Chloride 103 mmol/L (98-107); Estimated Glomerular Filt Rate > 60.0 mL/min (>60); Glucose 105 mg/dL (70-100); HEMOLYSIS < 15 (0-50); Sodium 136 mmol/L (137-145); Total Protein 7.1 g/dL (6.3-8.2)
== END ==
PROVIDERS: PCP Naturopath; Referring Provider Dermatology; Visit Provider Dermatology
DX: Z79.899 Other long term (current) drug therapy (principal); L10.0 Pemphigus vulgaris
CPT/HCPCS: 36415; 80053; 83735; 85025

== ENCOUNTER → 2020-11-29 15:08 | Outpatient (CLI) | payer OTHER, SELFPAY ==
[2020-11-29 15:53] LABS: Add Manual Diff / Slide Review NO; Basophils Absolute Auto 100 /uL (0-100); Basophils Percent Auto 0.6 % (0-2); Eosinophils Absolute Auto 200 /uL (0-450); Eosinophils Percent Auto 1.6 % (2-4); Hematocrit 42.8 % (36-46); Hemoglobin 13.8 g/dL (12.0-16.0); Lymphocytes Absolute Auto 1800 /uL (1100-4500); Lymphocytes Percent Auto 18.1 % (25-40); Mean Corpuscular HGB Conc 32.3 % (30-36); Mean Corpuscular Hemoglobin 27.2 PG (26-34); Mean Corpuscular Volume 84.1 fL (80-100); Monocytes Absolute Auto 400 /uL (0-900); Monocytes Percent Auto 3.6 % (3-14); Neutrophils Absolute Auto 7500 /uL (1500-7000); Neutrophils Percent Auto 76.1 % (50-75); Platelet Count 291 X10^3/uL (150-400); Red Blood Cell Count 5.09 X10^6/uL (4.0-5.2); Red Cell Distribution Width 14.1 % (11.6-14.8); White Blood Cell Count 9.9 X10^3/uL (4.5-11.0)
[2020-11-29 16:08] LABS: Alanine Aminotransferase 14 IU/L (<35); Albumin 4.5 g/dL (3.5-5.0); Albumin Globulin Ratio 1.1 (1.0-2.8); Alkaline Phosphatase 114 U/L (38-126); Aspartate Aminotransferase 26 IU/L (14-36); BUN Creatinine Ratio 21.7 (6-22); Bilirubin Total 0.6 mg/dL (0.2-1.3); Blood Urea Nitrogen 15 mg/dL (7-17); Calcium 9.6 mg/dL (8.4-10.2); Carbon Dioxide 25 mmol/L (22-32); Chloride 102 mmol/L (98-107); Estimated Glomerular Filt Rate > 60.0 mL/min (>60); Glucose 82 mg/dL (70-100); HEMOLYSIS 46 (0-50); Sodium 137 mmol/L (137-145); Total Protein 8.5 g/dL (6.3-8.2)
== END ==
PROVIDERS: PCP Naturopath; Referring Provider Dermatology; Visit Provider Dermatology
DX: Z79.899 Other long term (current) drug therapy (principal); L10.0 Pemphigus vulgaris; D84.9 Immunodeficiency, unspecified
CPT/HCPCS: 36415; 80053; 85025

== ENCOUNTER → 2020-12-28 14:55 | Outpatient (CLI) | payer OTHER, SELFPAY ==
[2020-12-28 15:37] LABS: COVID19 -Nasal RAPID Negative (Negative)
== END ==
PROVIDERS: PCP Naturopath; Referring Provider Internal Medicine; Visit Provider Internal Medicine
DX: Z20.822 Contact with and (suspected) exposure to COVID-19 (principal)
CPT/HCPCS: 87635; C9803

== ENCOUNTER → 2020-12-29 14:42 | Outpatient (CLI) | payer OTHER, SELFPAY ==
--- NOTE | 2021-01-04 10:15 | PM.PFT.1 ---
Pulmonary Function Test Referral & Results Date Patient Seen: 12/29/20 Requesting provider: Josselin Rodriguez Results: The spirometry demonstrates an FVC of 3.3 L which is 87% of predicted. The FEV1 was measured at 2.17 L which is 67% of predicted. The FEV1/FVC ratio was 66 which is 77% of predicted. Following the administration of bronchodilator there was 15% improvement in FEV1 and a 49% improvement in FEF 25-75%. Lung volumes show an SVC of 3.20 L which is 86% of predicted. The diffusing capacity was measured at 25.27 which is 104% of predicted. The maximum voluntary ventilation was reduced Interpretation: This study demonstrates mild obstructive lung disease based on reduction FEV1 and minimal reduction FEV1/FVC ratio. There is evidence of some benefit following bronchodilator based on improvement in FEV1 and more dramatic improvement in FEF 25-75% suggesting small airway flow improvement Lung volumes are probably normal Diffusing capacity is normal
== END ==
PROVIDERS: PCP Naturopath; Referring Provider Naturopath; Visit Provider Naturopath
DX: R06.00 Dyspnea, unspecified (principal); J98.8 Other specified respiratory disorders
CPT/HCPCS: 94060; 94726; 94729

== ENCOUNTER → 2021-05-11 15:58 | Outpatient (CLI) | payer OTHER, SELFPAY ==
[2021-05-11 16:58] LABS: COVID19 -Nasal RAPID Negative (Negative)
== END ==
PROVIDERS: PCP Naturopath; Visit Provider Specialist
DX: Z20.822 Contact with and (suspected) exposure to COVID-19 (principal); Z01.812 Encounter for preprocedural laboratory examination
CPT/HCPCS: 87635

== ENCOUNTER 2021-05-12 09:17 | Day surgery (SDC) | payer OTHER, SELFPAY ==
[2021-05-10 08:52] VITALS: BMI 23.8
[2021-05-12] VITALS (8 sets, daily range): BP systolic 94–112; BP diastolic 47–72; PULSE 69–93; RESP 12–18; TEMP 36.1–37.1; O2SAT 93–100; BMI 23.8
--- NOTE | 2021-05-12 | PATH_ITS ---
[facility] Accession Number: [id number] . 01 Material submitted: . PART A: fallopian tube - BILATERAL FALLOPIAN TUBES PART B: peritoneum - PERITONEAL BIOPSY . 02 Diagnosis: A. Bilateral Fallopian Tubes, Sterilization: Bilateral fallopian tube segments with no evidence of neoplasia. . B. Peritoneum, Biopsy: Endometriosis. Additional levels were examined. MRV 05/16/2021 1517 Local . 02 Electronically signed: . Jana العراقي MD, Pathologist NPI- [id number] . 01 Gross description: . A. The specimen is received in formalin, labeled bilateral fallopian tubes, and consists of two fallopian tubes measuring 5.0 cm in length by 0.8 cm in diameter and 6.2 cm in length and 0.7 cm in diameter. The serosa is heaton-pink and smooth with focal fibrinous adhesions. Sectioning reveals a heaton mucosa and a stellate lumen measuring 0.2 cm in diameter. Extractor Operator sections are each fallopian tube are submitted to include the en face margin (blue), central cross sections, and bisected fimbriae in cassettes A1-A2. B. The specimen is received in formalin, labeled peritoneal biopsy, and consists of a 1.0 x 0.4 x 0.2 cm, heaton-pink fragment of soft tissue which is entirely submitted in cassette B1. ([id number]) /FRR 05/13/2021 1403 Local . 02 Pathologist provided ICD-10: Z30.2, N80.9 . 02 CPT . 562825, 430375 Performed at: 01 [facility] [address] [place] [address] [address], [place], [place] [id number] MD Luc Dumont MD Phone: [phone] Performed at: 02 [facility] [place] [address] [place] [id number] MD Jana العراقي MD Phone: [phone]
[2021-05-12] MEDS: LACTATED RINGERS 1,000 ML 100 ML IV ×2 (10:10→11:40)
--- NOTE | 2021-05-12 11:12 | PM.PREOP ---
Pre-operative Note COVID-19 COVID-19 status: Negative Result date/Date tested (Pos, Neg/Pending): 05/11/21 Interval Note History & Physical reviewed/Exam performed by Physician: Yes Changes to H&P: No
--- NOTE | 2021-05-12 11:44 | SUR.OPER ---
Lithotomy on padded OR bed, head on pillow, arms secured on padded arm boards at <90 degrees abduction. Legs secured in padded yellow fins stirrups. Patient states her glasses were placed in her belongings bag in pre-op. patient voided at approx 1115.
[2021-05-12] MEDS: BUPIVACAINE 0.5% (PF) 30 ML, EPINEPHrine 0.15 MG INJ (11:53)
--- NOTE | 2021-05-12 12:06 | P.OP_ITS ---
Operative Date/Time/Diagnoses Date of procedure: 05/12/21 Time of procedure: 12:06 Pre-op diagnosis: Sterilization Post-op diagnosis: other (Sterilization with biopsy of presumed endometriosis) Procedure & Clinicians Procedure: Laparoscopic bilateral salpingectomies with biopsy of peritoneal surface Same procedure as scheduled: No (Area of presumed endometriosis found at surgery ) Indications: Sterilization Surgeon: Taylor Velásquez Click Yes if Unassisted: Yes Anesthesia Type: General Operative Notes Findings: Normal tubes, ovaries, uterus. Normal liver edge. Normal bowel surface. No internal hernias. An area probable endometriosis in the posterior cul-de-sac on the left side. Closure Type: primary Specimen(s): other (Bilateral fallopian tubes and peritoneal biopsy) Estimated Blood Loss (mL): 2 Blood products transfused: none Procedure in detail: Patient was brought to the operating room where she underwent general anesthesia. She was placed in low yellowfin stirrups and prepped and draped in usual sterile fashion. Pulsatile stockings were in place and functional. Warming was with blankets. A single-tooth tenaculum was placed on the anterior lip of the cervix and the cervix dilated to #6 Hegar dilator. The Zumi uterine manipulator was placed and balloon inflated with 3 mL of air. The area of the incisions were injected with half percent Marcaine with epinephrine. An incision was made in the umbilicus with a scalpel and the V erres needle placed in the abdomen. Confirmation of correct placement of the needle was performed by withdrawing on the syringe and then allowing fluid to fall freely through the needle. The abdomen was insufflated to 4 L of CO2. A 5 mm trocar was placed under direct visualization. 2 other 5 mm trochars were placed in the right and left lower quadrant under direct visualization after incising the skin. There did not appear to be any damage with placement of the trocars. The right fallopian tube was grasped and removed by cauterizing and cutting the mesosalpinx and across the fallopian tube at the junction with the uterus with the PK generator. Same procedure was performed on the left fallopian tube. The tubes were brought up out of the abdomen. Adequate hemostasis was noted. The area of the perineum with presumed endometriosis was grasped and removed with monopolar cautery. Bleeding was controlled with monopolar cautery. The CO2 was allowed to escape from the abdomen. The trochars were removed. Skin was closed with 4-0 monocryl. The patient went to recovery room in good condition. Complications: none Post-operative Condition: stable Disposition: same day surgery Plan for aftercare: Home when awake and stable
--- NOTE | 2021-05-12 12:24 | SUR.PHASEI ---
Pt arrived self maintained airway, glycopirolate given by Dr. Willard on arrival, pt denied pain no nausea, had ice chips w/o problems.
[2021-05-12] MEDS: ONDANSETRON 4 MG/2 ML INJ IV (12:33)
--- NOTE | 2021-05-12 13:00 | SUR.PHASEI ---
1250-Meets criteria for transfer to phase 2. wide awake and alert. vss. ice chips given. antiemetic x 1 in pacu. alcohol swab/aroma therapy for nausea control for intermittent nausea sensation. abdomen soft. skin glue abdominal sites cdi/no drainage to peripad. hob maintained elevated. Maewx 4. iv site patent left arm. shivering earlier,subsiding more. ice pack abdomen for c/o mild cramping. Dr Velásquez here to talk with patient & Verbally okayed use of ibuprofen for at home. Patient anxious about mom, attempt to reassure-explained Dr Velásquez updated her. Still apprehensive. Mom called and allowed patient to speake with her. Anxiety relieved. Transferred to Phase 2 With care transferred back to Yudy Leon RN.
--- NOTE | 2021-05-12 13:05 | SUR.PHASEII ---
Assumed care of pt, assisted to BR to void, steady when up. Voided. [place] warmer on pt, nausea better, taking ice chips. Scant amount of bloody drainage on heidy pad.
--- NOTE | 2021-05-12 13:36 | SUR.PHASEII ---
Pt ready to go, ride called, pt asked to use BR one more time voided, belly soft puncture sites intact, scant drainage on heidy pad. Pt left unit in stable condition.
== END 2021-05-12 13:40 | disposition home or self-care (01) ==
PROVIDERS: PCP Naturopath; Referring Provider Specialist; Visit Provider Specialist
PROC: 0UT74ZZ Resection of Bilateral Fallopian Tubes, Percutaneous Endoscopic Approach (ICD-10-PCS; CPT 58661; principal; 2021-05-12 10:45)
DX: Z30.2 Encounter for sterilization (principal); J45.909 Unspecified asthma, uncomplicated; N80.9 Endometriosis, unspecified
CPT/HCPCS: 58661; 49321; 81025; A9270; J0171; J2250; J2405; J3010

== ENCOUNTER → 2021-09-22 14:59 | Outpatient (CLI) | payer OTHER, SELFPAY ==
[2021-09-22 15:29] LABS: Add Manual Diff / Slide Review NO; Basophils Absolute Auto 100 /uL (0-100); Basophils Percent Auto 0.7 % (0-2); Eosinophils Absolute Auto 100 /uL (0-450); Eosinophils Percent Auto 1.8 % (2-4); Hematocrit 37.7 % (36-46); Hemoglobin 12.4 g/dL (12.0-16.0); Lymphocytes Absolute Auto 1800 /uL (1100-4500); Lymphocytes Percent Auto 23.8 % (25-40); Mean Corpuscular HGB Conc 32.9 % (30-36); Mean Corpuscular Hemoglobin 27.2 PG (26-34); Mean Corpuscular Volume 82.8 fL (80-100); Monocytes Absolute Auto 500 /uL (0-900); Monocytes Percent Auto 6.5 % (3-14); Neutrophils Absolute Auto 5100 /uL (1500-7000); Neutrophils Percent Auto 67.2 % (50-75); Platelet Count 287 X10^3/uL (150-400); Red Blood Cell Count 4.56 X10^6/uL (4.0-5.2); Red Cell Distribution Width 13.5 % (11.6-14.8); White Blood Cell Count 7.7 X10^3/uL (4.5-11.0)
[2021-09-22 16:01] LABS: Alanine Aminotransferase 13 IU/L (<35); Albumin 4.2 g/dL (3.5-5.0); Albumin Globulin Ratio 1.1 (1.0-2.8); Alkaline Phosphatase 95 U/L (38-126); Aspartate Aminotransferase 23 IU/L (14-36); BUN Creatinine Ratio 18.2 (6-22); Bilirubin Total 0.4 mg/dL (0.2-1.3); Blood Urea Nitrogen 12 mg/dL (7-17); Calcium 8.9 mg/dL (8.4-10.2); Carbon Dioxide 23 mmol/L (22-32); Chloride 107 mmol/L (98-107); Estimated Glomerular Filt Rate > 60.0 mL/min (>60); Globulin 3.9 g/dL (1.7-4.1); Glucose 97 mg/dL (70-100); HEMOLYSIS 18 (0-50); Potassium 4.1 mmol/L (3.4-5.1); Sodium 137 mmol/L (137-145); Total Protein 8.1 g/dL (6.3-8.2)
== END ==
PROVIDERS: PCP Naturopath; Referring Provider Dermatology; Visit Provider Dermatology
DX: L10.0 Pemphigus vulgaris (principal)
CPT/HCPCS: 36415; 80053; 85025

== ENCOUNTER → 2022-03-26 15:56 | Outpatient (CLI) | payer OTHER, SELFPAY ==
[2022-03-26 17:50] LABS: Add Manual Diff / Slide Review NO; Basophils Absolute Auto 100 /uL (0-100); Eosinophils Absolute Auto 100 /uL (0-450); Eosinophils Percent Auto 1.2 % (2-4); Hematocrit 37.3 % (36-46); Hemoglobin 12.5 g/dL (12.0-16.0); Lymphocytes Absolute Auto 2300 /uL (1100-4500); Lymphocytes Percent Auto 25.1 % (25-40); Mean Corpuscular HGB Conc 33.6 % (30-36); Mean Corpuscular Hemoglobin 27.2 PG (26-34); Mean Corpuscular Volume 80.9 fL (80-100); Monocytes Absolute Auto 500 /uL (0-900); Monocytes Percent Auto 5.2 % (3-14); Neutrophils Absolute Auto 6100 /uL (1500-7000); Neutrophils Percent Auto 67.5 % (50-75); Platelet Count 297 X10^3/uL (150-400); Red Blood Cell Count 4.61 X10^6/uL (4.0-5.2); Red Cell Distribution Width 14.1 % (11.6-14.8)
[2022-03-26 18:06] LABS: Alanine Aminotransferase 10 IU/L (<35); Albumin 4.2 g/dL (3.5-5.0); Albumin Globulin Ratio 1.1 (1.0-2.8); Alkaline Phosphatase 125 U/L (38-126); Aspartate Aminotransferase 22 IU/L (14-36); BUN Creatinine Ratio 10.5 (6-22); Bilirubin Total 0.6 mg/dL (0.2-1.3); Blood Urea Nitrogen 8 mg/dL (7-17); Calcium 9.2 mg/dL (8.4-10.2); Carbon Dioxide 24 mmol/L (22-32); Chloride 107 mmol/L (98-107); Estimated Glomerular Filt Rate > 60 mL/min (>60); Globulin 3.9 g/dL (1.7-4.1); Glucose 85 mg/dL (70-100); HEMOLYSIS < 15 (0-50); Sodium 138 mmol/L (137-145); Total Protein 8.1 g/dL (6.3-8.2)
== END ==
PROVIDERS: PCP Naturopath; Referring Provider Dermatology; Visit Provider Dermatology
DX: L10.0 Pemphigus vulgaris (principal)
CPT/HCPCS: 36415; 80053; 83735; 85025

== ENCOUNTER → 2022-09-24 15:38 | Outpatient (CLI) | payer OTHER, SELFPAY ==
[2022-09-24 16:18] LABS: Add Manual Diff / Slide Review NO; Basophils Absolute Auto 100 /uL (0-100); Basophils Percent Auto 1.2 % (0-2); Eosinophils Absolute Auto 100 /uL (0-450); Hematocrit 36.4 % (36-46); Hemoglobin 12.1 g/dL (12.0-16.0); Lymphocytes Absolute Auto 2300 /uL (1100-4500); Mean Corpuscular HGB Conc 33.3 % (30-36); Mean Corpuscular Hemoglobin 26.7 PG (26-34); Mean Corpuscular Volume 80.3 fL (80-100); Monocytes Absolute Auto 500 /uL (0-900); Monocytes Percent Auto 5.6 % (3-14); Neutrophils Absolute Auto 5800 /uL (1500-7000); Neutrophils Percent Auto 66.2 % (50-75); Platelet Count 297 X10^3/uL (150-400); Red Blood Cell Count 4.53 X10^6/uL (4.0-5.2); Red Cell Distribution Width 13.9 % (11.6-14.8); White Blood Cell Count 8.8 X10^3/uL (4.5-11.0)
[2022-09-24 16:34] LABS: Alanine Aminotransferase 16 IU/L (<35); Albumin 3.9 g/dL (3.5-5.0); Albumin Globulin Ratio 1.2 (1.0-2.8); Alkaline Phosphatase 129 U/L (38-126); Aspartate Aminotransferase 22 IU/L (14-36); BUN Creatinine Ratio 12.5 (6-22); Bilirubin Total 0.6 mg/dL (0.2-1.3); Blood Urea Nitrogen 8 mg/dL (7-17); Calcium 9.1 mg/dL (8.4-10.2); Carbon Dioxide 26 mmol/L (22-32); Chloride 101 mmol/L (98-107); Estimated Glomerular Filt Rate > 60 mL/min (>60); Globulin 3.3 g/dL (1.7-4.1); Glucose 101 mg/dL (70-100); HEMOLYSIS < 15 (0-50); Potassium 3.9 mmol/L (3.4-5.1); Sodium 136 mmol/L (137-145); Total Protein 7.2 g/dL (6.3-8.2)
== END ==
PROVIDERS: PCP Naturopath; Referring Provider Dermatology; Visit Provider Dermatology
DX: L10.0 Pemphigus vulgaris (principal)
CPT/HCPCS: 36415; 80053; 85025

== ENCOUNTER → 2023-08-13 16:10 | Outpatient (CLI) | payer OTHER, SELFPAY ==
[2023-08-13 17:37] LABS: Add Manual Diff / Slide Review NO; Basophils Absolute Auto 100 /uL (0-100); Basophils Percent Auto 1.2 % (0-2); Eosinophils Absolute Auto 200 /uL (0-450); Eosinophils Percent Auto 1.9 % (2-4); Hematocrit 36.7 % (36-46); Hemoglobin 12.2 g/dL (12.0-16.0); Lymphocytes Absolute Auto 3000 /uL (1100-4500); Mean Corpuscular HGB Conc 33.2 % (30-36); Mean Corpuscular Hemoglobin 26.8 PG (26-34); Mean Corpuscular Volume 80.8 fL (80-100); Monocytes Absolute Auto 700 /uL (0-900); Monocytes Percent Auto 6.4 % (3-14); Neutrophils Absolute Auto 6300 /uL (1500-7000); Neutrophils Percent Auto 61.5 % (50-75); Platelet Count 340 X10^3/uL (150-400); Red Blood Cell Count 4.54 X10^6/uL (4.0-5.2); White Blood Cell Count 10.2 X10^3/uL (4.5-11.0)
[2023-08-13 18:35] LABS: Alanine Aminotransferase 13 IU/L (<35); Albumin 4.2 g/dL (3.5-5.0); Albumin Globulin Ratio 1.1 (1.0-2.8); Alkaline Phosphatase 118 U/L (38-126); Aspartate Aminotransferase 22 IU/L (14-36); BUN Creatinine Ratio 16.9 (6-22); Bilirubin Total 0.5 mg/dL (0.2-1.3); Blood Urea Nitrogen 11 mg/dL (7-17); Calcium 9.6 mg/dL (8.4-10.2); Carbon Dioxide 28 mmol/L (22-32); Chloride 101 mmol/L (98-107); Estimated Glomerular Filt Rate > 60 mL/min (>60); Globulin 3.7 g/dL (1.7-4.1); Glucose 105 mg/dL (70-100); HEMOLYSIS < 15 (0-50); Potassium 3.5 mmol/L (3.4-5.1); Sodium 138 mmol/L (137-145); Total Protein 7.9 g/dL (6.3-8.2)
== END ==
PROVIDERS: PCP Naturopath; Referring Provider Dermatology; Visit Provider Dermatology
DX: Z79.899 Other long term (current) drug therapy (principal)
CPT/HCPCS: 36415; 80053; 85025

== ENCOUNTER → 2024-01-17 14:26 | Outpatient (CLI) | payer OTHER, SELFPAY ==
[2024-01-17 15:19] LABS: Hematocrit 36.7 % (36-46); Hemoglobin 11.9 g/dL (12.0-16.0)
[2024-01-17 16:26] LABS: Ferritin 11 ng/mL (6-137)
== END ==
PROVIDERS: PCP Naturopath; Referring Provider Naturopath; Visit Provider Naturopath
DX: E61.1 Iron deficiency (principal)
CPT/HCPCS: 36415; 82728; 85014; 85018

== ENCOUNTER → 2024-02-25 16:21 | Outpatient (CLI) | payer OTHER, SELFPAY ==
[2024-02-25 17:36] LABS: Add Manual Diff / Slide Review NO; Basophils Absolute Auto 0 /uL (0-100); Basophils Percent Auto 0.5 % (0-2); Eosinophils Absolute Auto 100 /uL (0-450); Eosinophils Percent Auto 1.3 % (2-4); Hematocrit 36.9 % (36-46); Lymphocytes Absolute Auto 2200 /uL (1100-4500); Lymphocytes Percent Auto 23.2 % (25-40); Mean Corpuscular HGB Conc 32.6 % (30-36); Mean Corpuscular Hemoglobin 26.7 PG (26-34); Mean Corpuscular Volume 81.9 fL (80-100); Monocytes Absolute Auto 500 /uL (0-900); Monocytes Percent Auto 5.6 % (3-14); Neutrophils Absolute Auto 6500 /uL (1500-7000); Neutrophils Percent Auto 69.4 % (50-75); Platelet Count 297 X10^3/uL (150-400); Red Blood Cell Count 4.51 X10^6/uL (4.0-5.2); Red Cell Distribution Width 14.4 % (11.6-14.8); White Blood Cell Count 9.4 X10^3/uL (4.5-11.0)
[2024-02-25 17:42] LABS: Reticulocyte Count, Percent 1.1 % (1.1-2.6)
[2024-02-25 17:50] LABS: INR 1.1 (0.9-1.3); PTT Partial Thromboplastin Tim 39 SECONDS (25.1-36.5); Prothrombin Time 12.1 SECONDS (9.4-12.5)
[2024-02-25 17:51] LABS: Iron 102 ug/dL (37-170)
[2024-02-25 17:55] LABS: Alanine Aminotransferase 12 IU/L (<35); Albumin 4.2 g/dL (3.5-5.0); Albumin Globulin Ratio 1.2 (1.0-2.8); Alkaline Phosphatase 131 U/L (38-126); Aspartate Aminotransferase 26 IU/L (14-36); BUN Creatinine Ratio 13.2 (6-22); Bilirubin Total 0.7 mg/dL (0.2-1.3); Blood Urea Nitrogen 9 mg/dL (7-17); Calcium 9.1 mg/dL (8.4-10.2); Carbon Dioxide 24 mmol/L (22-32); Chloride 107 mmol/L (98-107); Estimated Glomerular Filt Rate > 60 mL/min (>60); Globulin 3.6 g/dL (1.7-4.1); Glucose 83 mg/dL (70-100); HEMOLYSIS < 15 (0-50); Potassium 3.8 mmol/L (3.4-5.1); Sodium 139 mmol/L (137-145); Total Protein 7.8 g/dL (6.3-8.2)
[2024-02-25 18:01] LABS: Total Iron Binding Capacity 303 ug/dL (265-497)
[2024-02-25 18:05] LABS: Lactate Dehydrogenase 169 U/L (120-246)
[2024-02-25 18:42] LABS: Vitamin B12 746 pg/mL (239-931)
== END ==
LOC: LAB 16:22
PROVIDERS: PCP Naturopath; Referring Provider Dermatology; Visit Provider Dermatology
DX: Z79.899 Other long term (current) drug therapy (principal)
CPT/HCPCS: 36415; 80053; 80180; 82607; 83540; 83550; 83615; 85025; 85045; 85610; 85730

== ENCOUNTER → 2024-03-04 13:28 | Outpatient (CLI) | payer BC, SELFPAY ==
[2024-03-04 14:44] LABS: Occult Blood 1 Negative (Negative); Occult Blood 2 Negative (Negative); Occult Blood 3 Negative (Negative)
== END ==
LOC: LAB 13:28
PROVIDERS: PCP Naturopath; Referring Provider Dermatology; Visit Provider Dermatology
DX: Z79.899 Other long term (current) drug therapy (principal)
CPT/HCPCS: 82270

== ENCOUNTER → 2024-03-06 15:53 | Outpatient (CLI) | payer BC, SELFPAY | PROVIDERS: PCP Naturopath; Referring Provider Dermatology; Visit Provider Dermatology | DX: L10.0 Pemphigus vulgaris (principal) | CPT/HCPCS: 36415; 83921 ==

== ENCOUNTER → 2024-03-19 12:28 | Outpatient (CLI) | payer BC, SELFPAY ==
[2024-03-19 13:00] LABS: Occult Blood 1 Negative (Negative); Occult Blood 2 Negative (Negative)
[2024-03-19 13:01] LABS: Occult Blood 3 Negative (Negative)
== END ==
LOC: LAB 12:29
PROVIDERS: PCP Naturopath; Referring Provider Dermatology; Visit Provider Dermatology
DX: Z79.899 Other long term (current) drug therapy (principal)
CPT/HCPCS: 82270

== ENCOUNTER → 2024-09-09 14:48 | Outpatient (CLI) | payer BC, SELFPAY ==
[2024-09-09 15:40] LABS: Add Manual Diff / Slide Review NO; Basophils Absolute Auto 100 /uL (0-100); Basophils Percent Auto 0.6 % (0-2); Eosinophils Absolute Auto 200 /uL (0-450); Eosinophils Percent Auto 1.7 % (2-4); Hematocrit 35.1 % (36-46); Hemoglobin 11.6 g/dL (12.0-16.0); Lymphocytes Absolute Auto 2900 /uL (1100-4500); Lymphocytes Percent Auto 25.3 % (25-40); Mean Corpuscular HGB Conc 32.9 % (30-36); Mean Corpuscular Hemoglobin 27.1 PG (26-34); Mean Corpuscular Volume 82.4 fL (80-100); Monocytes Absolute Auto 700 /uL (0-900); Monocytes Percent Auto 6.5 % (3-14); Neutrophils Absolute Auto 7600 /uL (1500-7000); Neutrophils Percent Auto 65.9 % (50-75); Platelet Count 348 X10^3/uL (150-400); Red Blood Cell Count 4.26 X10^6/uL (4.0-5.2); Red Cell Distribution Width 14.5 % (11.6-14.8); White Blood Cell Count 11.5 X10^3/uL (4.5-11.0)
[2024-09-09 16:09] LABS: Alanine Aminotransferase 14 IU/L (<35); Albumin 3.8 g/dL (3.5-5.0); Albumin Globulin Ratio 1.3 (1.0-2.8); Alkaline Phosphatase 120 U/L (38-126); Aspartate Aminotransferase 22 IU/L (14-36); BUN Creatinine Ratio 7.1 (6-22); Bilirubin Total 0.4 mg/dL (0.2-1.3); Blood Urea Nitrogen 5 mg/dL (7-17); Calcium 8.7 mg/dL (8.4-10.2); Carbon Dioxide 27 mmol/L (22-32); Chloride 104 mmol/L (98-107); Estimated Glomerular Filt Rate > 60 mL/min (>60); Globulin 2.9 g/dL (1.7-4.1); Glucose 78 mg/dL (70-100); HEMOLYSIS < 15 (0-50); Potassium 4.3 mmol/L (3.4-5.1); Sodium 137 mmol/L (137-145); Total Protein 6.7 g/dL (6.3-8.2)
[2024-09-09 16:42] LABS: Ferritin 17 ng/mL (6-137)
== END ==
LOC: LAB 14:52
PROVIDERS: PCP Naturopath; Referring Provider Naturopath; Visit Provider Dermatology
DX: L10.0 Pemphigus vulgaris (principal); E61.1 Iron deficiency; Z79.899 Other long term (current) drug therapy
CPT/HCPCS: 36415; 80053; 82728; 85025